=== PATIENT | male | born 1960 | race African-American/Black ===

== ENCOUNTER 2023-10-23 06:00 | Emergency (ER) | payer OTHER ==
[2023-10-23 06:26] VITALS: BP 151/84; PULSE 73; RESP 18; TEMP 98.2; BMI 22.6
[2023-10-23] MEDS: IBUPROFEN 400 MG TABLET (FP) PO ONE (08:45)
[2023-10-23] MEDS ORDERED: IBUPROFEN 400 MG TABLET (FP) PO ONE (08:53)
== END 2023-10-23 08:55 | disposition home or self-care (01) ==
LOC: JER 06:00
PROC: 2W3KX1Z Immobilization of Left Finger using Splint (ICD-10-PCS; principal; 2023-10-23)
DX: M79.645 Pain in left finger(s) (principal); V49.40XA Driver injured in collision with unspecified motor vehicles in traffic accident, initial encounter
CPT/HCPCS: 73130-TC-LT-FY; 99283-25